=== PATIENT | male | born 1955 | race American Indian/Alaskan Native ===

== ENCOUNTER 2017-07-06 08:23 | Emergency (ER) | payer OTHER ==
[2017-07-06 08:27] VITALS: RESP 18
[2017-07-06 09:00] LABS: RBC URINE < 1 /hpf (0-3); URINE BACTERIA RARE (<OCC); URINE BILIRUBIN NEGATIVE (NEGATIVE); URINE BLOOD NEGATIVE (NEGATIVE); URINE GLUCOSE (UA) NORMAL (Normal); URINE KETONE NEGATIVE (NEGATIVE); URINE LEUKOCYTE ESTERASE NEG Leu/uL (Negative); URINE PROTEIN 1+ mg/dL (NEGATIVE); WBC URINE 6 /hpf (0-5)
[2017-07-06 09:20] LABS: URINE COLOR YELLOW (YELLOW)
[2017-07-06] MEDS ORDERED: Iohexol 240 (50 ml) PO STA (09:35)
[2017-07-06] MEDS ORDERED: Iohexol 240 (50 ml) ONE (09:46)
--- NOTE | 2017-07-06 09:48 | C.PDOC ---
History Of Present Illness Patient is a 62 year old male, whose PMHx includes diverticulitis, and prostate CA currently in remission, presents to the ED for evaluation of LLQ abdominal pain for the past week. Pt states pain is non-radiating, and constant in nature. Pt reports having decreased PO intake. Notes being seen by a new PMD several days ago, and was started on Lomotil. Otherwise, denies any fever, chills, nausea, vomiting, or any other associated symptoms at this time. Time Seen by Provider: 07/06/17 08:36 Chief Complaint (Nursing): Abdominal Pain History Per: Patient History/Exam Limitations: no limitations Onset/Duration Of Symptoms: Days (1 week), Persistent Current Symptoms Are (Timing): Still Present Location Of Pain/Discomfort: LLQ Radiation Of Pain To:: None Quality Of Discomfort: "Pain" Associated Symptoms: denies: Fever, Chills, Nausea, Vomiting, Diarrhea, Back Pain, Chest Pain, Constipation, Urinary Symptoms Exacerbating Factors: None Alleviating Factors: None Recent travel outside of the [place]: No Additional History Per: Patient Past Medical History Reviewed: Historical Data, Nursing Documentation, Vital Signs Vital Signs: Last Vital Signs Temp 98.1 F 07/06/17 13:49 Pulse 78 07/06/17 13:49 Resp 18 07/06/17 13:49 BP 127/80 07/06/17 13:49 Pulse Ox 95 07/07/17 19:10 - Medical History PMH: Diverticulitis, HTN, Malignancy (Prostate CA (currently in remission)) Family History: States: No Known Family Hx - Social History Hx Alcohol Use: Yes Hx Substance Use: No Review Of Systems Constitutional: Negative for: Fever, Chills Gastrointestinal: Positive for: Abdominal Pain (LLQ). Negative for: Nausea, Vomiting, Diarrhea, Constipation Genitourinary: Negative for: Dysuria, Frequency, Hematuria, Penile Discharge Musculoskeletal: Negative for: Back Pain Physical Exam - Physical Exam Appears: Well, Non-toxic, No Acute Distress Skin: Normal Color, Warm, Dry, No Rash Head: Atraumatic, Normacephalic Eye(s): bilateral: Normal Inspection, EOMI Oral Mucosa: Moist Neck: Normal ROM, Supple Cardiovascular: Rhythm Regular, No Murmur Respiratory: Normal Breath Sounds, No Rales, No Rhonchi, No Wheezing Gastrointestinal/Abdominal: Bowel Sounds, Soft, Tenderness (LLQ), No Guarding, No Rebound Back: Normal Inspection, No CVA Tenderness Extremity: Bilateral: Atraumatic, Normal ROM Neurological/Psych: Oriented x3, Normal Speech, Normal Cognition ED Course And Treatment - Laboratory Results Result Diagrams: 07/06/17 09:46 07/06/17 09:46 O2 Sat by Pulse Oximetry: 95 (RA) Pulse Ox Interpretation: Normal - CT Scan/US Abd & pelvis CT Other Rad Studies (CT/US): Read By Radiologist, Radiology Report Reviewed CT/US Interpretation: IMPRESSION: Wall thickening and adjacent inflammatory changes involving mid left colon consistent with acute diverticulitis. Nonspecific mild dilatation of the pancreatic duct. The patient MRCP may be considered for further evaluation if indicated. Hepatic steatosis. Suspected focal fatty infiltration adjacent to the falciform ligament. Too small to characterize right hepatic lobe 4 mm hypodensity, statistically likely cyst or hemangioma. 10 mm right upper pole renal hypodensity, likely cyst. Additional tiny bilateral too small to characterize hypodense foci, statistically likely cysts. Prostate radiation seeds. Numerous bilateral lower lobe pulmonary cysts. Additional findings as above. Medical Decision Making Medical Decision Making: Impression: 62 y/o male, with Hx of diverticulitis, complains of LLQ abdominal pain for 1 week. Plan: Abd & pelvis CT, blood work, urinalysis, urine culture. Patient was treated with Morphine, and Omnipaque. On re-evaluation, pt is resting comfortably, no acute distress. Abdomen remains soft. Pt notes feeling better, with improvement of pain. 103 p pt with diverticulitis on ct scan; no elevation of wbc, no abscess noted , will d/c pt with cipro and flagyl. pt given copy of ct scan report; incidental findings of hepatic and pulmonary cysts discussed with patient; pt sts he will f/u with his physicians at [facility]/ Disposition Counseled Patient/Family Regarding: Studies Performed, Diagnosis, Need For Followup, Rx Given - Disposition Disposition: HOME/ ROUTINE Disposition Time: 13:06 Condition: STABLE Additional Instructions: Drink increased fluids; Avoid seeds, nuts. Take antibiotics as prescribed. Pain medications if needed. Follow up with your doctor in 1-2 days. Return to ER for any worse symptoms, increasing pain, fever, vomiting. Follow up with your doctors at [facility] for ct scan incidental findings. Prescriptions: Acetaminophen/Codeine [Tylenol/Codeine 300 MG/30 MG] 1 ea PO Q4 #12 tab Ciprofloxacin HCl [Cipro] 500 mg PO BID #14 tablet Metronidazole [Flagyl] 500 mg PO TID #21 tablet Instructions: Diverticulitis (ED), Diverticulitis Diet (ED) Forms: General Discharge Instructions, [facility] ([place] Citizen), Work Excuse - Clinical Impression Clinical Impression: Diverticulitis - PA / DISPLAY DECORATOR / Resident Statement MD/DO has reviewed & agrees with the documentation as recorded. - Scribe Statement The provider has reviewed the documentation as recorded by the Scribe Desirae Ferreira All medical record entries made by the Claudia were at my direction and personally dictated by me. I have reviewed the chart and agree that the record accurately reflects my personal performance of the history, physical exam, medical decision making, and the department course for this patient. I have also personally directed, reviewed, and agree with the discharge instructions and disposition.
[2017-07-06 09:49] LABS: BASO % 0.2 % (0.0-2.0); EOS # 0.1 K/uL (0.0-0.7); EOS % 1.6 % (0.0-4.0); HEMATOCRIT 41.6 % (35.0-51.0); LYMPH # 0.9 K/uL (1.0-4.3); LYMPH % 11.5 % (20.0-40.0); MEAN CELL VOLUME 93.7 fL (80.0-94.0); MEAN CORPUSCULAR HEMOGLOBIN 31.3 pg (27.0-31.0); MEAN CORPUSCULAR HGB CONC 33.4 g/dL (33.0-37.0); MEAN PLATELET VOLUME 8.1 fL (7.2-11.7); MONO # 0.9 K/uL (0.0-0.8); MONO % 11.5 % (0.0-10.0); RED CELL DISTRIBUTION WIDTH 12.9 % (11.5-14.5); WHITE BLOOD COUNT 7.8 K/uL (4.8-10.8)
[2017-07-06 09:57] LABS: CHLORIDE 103 mmol/L (98-107)
[2017-07-06 09:58] LABS: SODIUM 139 mmol/L (132-148)
[2017-07-06 10:00] LABS: ALB/GLOB RATIO 1.1 (1.0-2.1); ALKALINE PHOSPHATASE 39 U/L (38-126); ALT/SGPT 65 U/L (21-72); AST/SGOT 59 U/L (17-59); BILIRUBIN,TOTAL 1.5 mg/dL (0.2-1.3); BLOOD UREA NITROGEN 9 mg/dL (9-20); CARBON DIOXIDE 23 mmol/L (22-30); GFR AFRICAN-AMERICAN > 60; GLUCOSE,RANDOM 97 mg/dL (75-110); TOTAL PROTEIN 7.6 g/dL (6.3-8.3)
[2017-07-06 10:01] LABS: CALCIUM 8.7 mg/dl (8.6-10.4)
[2017-07-06 10:02] LABS: POTASSIUM 4.4 mmol/L (3.6-5.2)
[2017-07-06] MEDS ORDERED: Iodixanol 320 MG/ML 100 ML BOTTLE IV ONE (11:02)
--- NOTE | 2017-07-06 12:35 | CT ---
PROCEDURE: CT Abdomen and Pelvis with oral and IV contrast. HISTORY: abd pain COMPARISON: None available. TECHNIQUE: Contiguous axial images of the abdomen and pelvis. Oral and IV contrast was administered. Coronal and Sagittal reformats generated and reviewed. Contrast dose: 100 mL Visipaque Radiation dose: Total exam DLP = 807.64 mGy-cm. This CT exam was performed using one or more of the following dose reduction techniques: Automated exposure control, adjustment of the mA and/or kV according to patient size, and/or use of iterative reconstruction technique. FINDINGS: LOWER THORAX: Numerous bilateral lower lobe pulmonary cysts. No focal consolidation, pleural effusion, or pneumothorax. Small hiatal hernia. LIVER: Hypoattenuation of the liver compatible with hepatic steatosis. Focal region of hypodensity adjacent to the falciform ligament may reflect more focal fatty infiltration. 4 mm too small to characterize right posterior hepatic lobe hypodensity ; statistically likely a cyst or hemangioma. GALLBLADDER AND BILE DUCTS: Unremarkable. PANCREAS: Dilated pancreatic duct measuring up to approximately 4 mm. SPLEEN: Unremarkable. ADRENALS: Unremarkable. KIDNEYS AND URETERS: The kidneys enhance symmetrically. No hydronephrosis or obstructing renal calculus. 10 mm right upper pole renal hypodensity measures approximately 13 HU, likely cyst. Additional tiny bilateral hypodensities are too small to characterize. BLADDER: The urinary bladder appears unremarkable. REPRODUCTIVE: Prostate radiation seeds. APPENDIX: The appendix appears within normal limits of caliber. No secondary signs of acute appendicitis. BOWEL: The stomach is nondistended. The bowel loops appear within normal limits of caliber without evidence of intestinal obstruction. Wall thickening and adjacent inflammatory changes involving mid left colon consistent with acute diverticulitis. PERITONEUM: No significant free fluid. No definite free air. LYMPH NODES: No bulky lymphadenopathy identified. VASCULATURE: No aortic aneurysm. BONES: Degenerative changes. OTHER FINDINGS: None. IMPRESSION: Wall thickening and adjacent inflammatory changes involving mid left colon consistent with acute diverticulitis. Nonspecific mild dilatation of the pancreatic duct. The patient MRCP may be considered for further evaluation if indicated. Hepatic steatosis. Suspected focal fatty infiltration adjacent to the falciform ligament. Too small to characterize right hepatic lobe 4 mm hypodensity, statistically likely cyst or hemangioma. 10 mm right upper pole renal hypodensity, likely cyst. Additional tiny bilateral too small to characterize hypodense foci, statistically likely cysts. Prostate radiation seeds. Numerous bilateral lower lobe pulmonary cysts. Additional findings as above.
[2017-07-06 13:50] VITALS: BP 127/80; PULSE 78; TEMP 98.1
[2017-07-07 19:11] VITALS: O2SAT 95
== END 2017-07-06 13:30 | disposition home or self-care (01) ==
LOC: C.ER 08:23
DX: K57.32 Diverticulitis of large intestine without perforation or abscess without bleeding (principal)
CPT/HCPCS: 74177; 80053; 81001; 83690; 85025; 87086; 96374; 99285; J2270; Q9966; Q9967

== ENCOUNTER 2017-11-27 10:28 | Emergency (ER) | payer OTHER ==
[2017-11-27 10:41] VITALS: BMI 29.7
[2017-11-27 10:44] VITALS: TEMP 98.8
--- NOTE | 2017-11-27 11:18 | C.PDOC ---
History Of Present Illness Mike Oneill is a 62 year old male, with a past medical history of hypertension and prostate CA, who presents to the emergency department complaining of low bilateral back pain, right more than left s/p heavy lifting and slipping on ice. no bladder or bowel dysfunction, no saddle anesthesia, no numbness or tingling no le weakness. Patient states he needs an xray for work. PMD: Shaik Schreiber Time Seen by Provider: 11/27/17 11:04 Chief Complaint (Nursing): Back Pain History Per: Patient History/Exam Limitations: no limitations Current Symptoms Are (Timing): Still Present Quality Of Discomfort: "Pain" Associated Symptoms: denies: Incontinence, New Weakness, New Numbness Past Medical History Reviewed: Historical Data, Nursing Documentation, Vital Signs Vital Signs: Last Vital Signs Temp 98.8 F 11/27/17 10:41 Pulse 82 11/27/17 12:52 Resp 16 11/27/17 12:52 BP 140/93 H 11/27/17 12:52 Pulse Ox 96 11/29/17 09:11 - Medical History PMH: Diverticulitis, HTN, Malignancy (Prostate CA (currently in remission)) Surgical History: No Surg Hx Family History: States: Unknown Family Hx - Social History Hx Tobacco Use: Yes Hx Alcohol Use: Yes Hx Substance Use: No Review Of Systems Musculoskeletal: Positive for: Back Pain (bilateral) Neurological: Negative for: Weakness (tingling), Numbness Physical Exam - Physical Exam Skin: Normal Color, Warm, Dry Head: Atraumatic Eye(s): bilateral: Normal Inspection Neck: Normal ROM, Supple Back: Normal Inspection (bilateral mild diffuse lumbar tenderness. Worst on right upper lumbar area, spasm when palpated. ), No Vertebral Tenderness, Paraspinal Tenderness (bilateral lumbar area) Extremity: Normal ROM, No Pedal Edema, No Deformity, No Swelling Neurological/Psych: Oriented x3 ED Course And Treatment O2 Sat by Pulse Oximetry: 96 (RA) Pulse Ox Interpretation: Normal - Other Rad ls spine X-Ray: Viewed By Me, Read By Radiologist Interpretation: No fracture. . Spondylotic ridging. Minimal malalignment L4 on L5 and L5 on S1 - ligamentous laxity inferred ; associated facet hypertrophic arthrosis. No spondylolysis. Minimal diffuse lumbar posterior disc space narrowing Medical Decision Making Medical Decision Making: Initial Impression: Back pain Initial Plan: LS Spine AP/LAT [RAD] reevaluation 12:20 LS Spine X-Ray FINDINGS: BONES: Minimal listhesis L4 approximately proximally 4 mm anterior to L5 and similarly L5 on S1 - facet hypertrophic arthrosis at these levels ligamentous laxity inferred. No spondylolysis appreciated. . No fracture. Anterior and mostly left lateral marginal osteophytes throughout the thoracolumbar spine DISC SPACES: Minimal disc space narrowing at all posterior lumbar levels OTHER FINDINGS: Shallow AP spinal canal L5 level -spinal stenosis possible Static radiation seeds present IMPRESSION: No fracture. . Spondylotic ridging Minimal malalignment L4 on L5 and L5 on S1 - ligamentous laxity inferred ; associated facet hypertrophic arthrosis. No spondylolysis Minimal diffuse lumbar posterior disc space narrowing 12:45 --Upon provider reevaluation patient is feeling better, is medically stable, and requires no further treatment in the ED at this time. Patient will be discharged home. Counseling was provided and all questions were answered regarding diagnosis and need for follow up with Dr. Elvis Lemons. There is agreement to discharge plan. Return if symptoms persist or worsen. Disposition Counseled Patient/Family Regarding: Studies Performed, Diagnosis, Need For Followup - Disposition Referrals: Anne Landa MD [Staff Provider] - Disposition: HOME/ ROUTINE Disposition Time: 12:45 Condition: STABLE Additional Instructions: Please follow up with Dr Landa or with an orthopedist of your choice. Try to avoid heavy lifting. Continue muscle relaxant at bedtime, recommend ibupforen during day. Forms: General Discharge Instructions, [facility] (Urdu), Work Excuse - Clinical Impression Clinical Impression: Lumbar sprain - Scribe Statement Jake Light All medical record entries made by the Scribe were at my direction and personally dictated by me. I have reviewed the chart and agree that the record accurately reflects my personal performance of the history, physical exam, medical decision making, and the department course for this patient. I have also personally directed, reviewed, and agree with the discharge instructions and disposition.
--- NOTE | 2017-11-27 12:22 | RAD ---
PROCEDURE: Radiographs of the Lumbar Spine. HISTORY: right thoracolumbar tendernss s/p heavy lifing COMPARISON: No prior. FINDINGS: BONES: Minimal listhesis L4 approximately proximally 4 mm anterior to L5 and similarly L5 on S1 - facet hypertrophic arthrosis at these levels ligamentous laxity inferred. No spondylolysis appreciated. . No fracture. Anterior and mostly left lateral marginal osteophytes throughout the thoracolumbar spine DISC SPACES: Minimal disc space narrowing at all posterior lumbar levels OTHER FINDINGS: Shallow AP spinal canal L5 level -spinal stenosis possible Static radiation seeds present IMPRESSION: No fracture. . Spondylotic ridging Minimal malalignment L4 on L5 and L5 on S1 - ligamentous laxity inferred ; associated facet hypertrophic arthrosis. No spondylolysis Minimal diffuse lumbar posterior disc space narrowing
[2017-11-27 12:52] VITALS: BP 140/93; PULSE 82; RESP 16
[2017-11-27 13:15] VITALS: O2SAT 96
== END 2017-11-27 12:52 | disposition home or self-care (01) ==
LOC: C.ER 10:28
DX: S33.5XXA Sprain of ligaments of lumbar spine, initial encounter (principal); W00.0XXA Fall on same level due to ice and snow, initial encounter